=== PATIENT | female | born 1985 | race Caucasian/White ===

== ENCOUNTER 2022-03-07 16:35 | Emergency (ER) | payer OTHER, SELFPAY ==
--- NOTE | 2022-03-07 16:41 | ED.URI ---
HPI - URI/Sore Throat General Stated Complaint: cough Time Seen by Provider: 03/07/22 17:25 Source: patient and RN notes reviewed Mode of arrival: ambulatory Limitations: no limitations History of Present Illness HPI Narrative: 36-year-old female who is 8 half weeks presents with concern for cough that started Saturday. She reports she has been taking Robitussin. She denies nasal congestion, rhinorrhea, fever, body aches, chills, sweats. Reports mild sore throat. MD elicited complaint: cough Related Data Home Medications Medication Instructions Recorded Confirmed 03/07/22 escitalopram oxalate 10 mg tablet mg 03/07/22 Allergies Allergy/AdvReac Type Severity Reaction Status Date / Time No Known Allergies Allergy Verified 08/23/16 15:37 Review of Systems Review of Systems: CONSTITUTIONAL: Denies malaise, chills, sweats, or fever. EYES: Denies visual changes, redness, or discharge. ENT: Reports rhinorrhea, congestion, sinus pain, otalgia. Reports sore throat. CARDIOVASCULAR: Denies chest pain, palpitations, or edema. RESPIRATORY: Reports cough. Denies dyspnea. GASTROINTESTINAL: Denies abdominal pain, nausea, vomiting, diarrhea SKIN: Denies rash or itching. MUSCULOSKELETAL: Denies myalgia. NEUROLOGIC: Denies headache. All systems reviewed & are unremarkable except as noted in HPI and below PMFSH Comments At time of signature, agree with nursing past medical, surgical, social and family history. There is no relevant family history pertinent to the presenting complaint Exam Narrative: GENERAL: Well-appearing, well-nourished, and in no acute distress. HEAD: Normocephalic EYES: PERRLA, conjunctivae clear ENT: Nares clear. Mucous membranes moist. TM pearly ornelas with sharp light reflex bilaterally; no tragal tenderness. Oropharynx mildly erythematous without lesions. Tonsils not enlarged and without exudate, no drooling, no hoarseness, no trismus, uvula midline. NECK: Supple. No lymphadenopathy CHEST: Clear to auscultation, breath sounds equal. No wheezing, rhonchi, rales, or stridor. No respiratory distress, speaks in full sentences. HEART: Regular rate and rhythm. No murmur heard. SKIN: Warm, dry, no rash. NEURO: Alert and oriented x3. PSYCH: Normal mood and affect Course Course Emergency Course: Patient is aware of diagnosis, understands and agrees to treatment plan. Anticipatory guidance given. Patient agrees to follow-up as directed and is aware of reasons to seek care at the emergency department. Portions of this record may have been created with voice recognition software Level of Care: Express Care Visit Vital Signs Vital signs: Reviewed. MDM - URI/Sore Throat MDM Narrative Medical decision making narrative: Differential diagnosis considered: [place] virus, strep pharyngitis, allergic rhinitis, upper respiratory tract infection, sinusitis, rhinosinusitis, nasopharyngitis. viral pharyngitis, otitis media, otitis externa, pneumonia, bronchitis, viral cough syndrome, viral syndrome, and influenza. Exam findings show no acute concerns or changes; patient is non-toxic appearing and is in no distress. Patient is appropriate for outpatient treatment and follow-up. Lab Data Attestation: I reviewed the patient's lab results. Critical Care Time Critical Care Time Critical Care Time: No Discharge Plan Discharge Clinical Impression: Cough Patient Disposition: Home, Self-Care Condition: Stable Instructions: Antibiotic Form, Acute Cough (ED) Additional Instructions: Your rapid strep swab was negative today at [facility]. A throat culture will be sent to the laboratory for further testing. If the test is positive, you will receive a phone call within 48 hours and an appropriate antibiotic will be initiated at that time. Your symptoms are likely due to a viral illness, which is not treated with antibiotics. Viral symptoms can be present for up to a few weeks. -Tylenol per pack
[2022-03-07 16:54] VITALS: BP 130/85; PULSE 72; RESP 16; TEMP 37.3; O2SAT 100
== END 2022-03-07 17:50 | disposition home or self-care (01) ==
PROVIDERS: Emergency Provider Nurse Practitioner; PCP Physician Assistant
DX: O99.891 Other specified diseases and conditions complicating pregnancy (principal); Z3A.08 8 weeks gestation of pregnancy; R05.9 Cough, unspecified
CPT/HCPCS: 87081; 87880; 99213; G0463

== ENCOUNTER 2022-04-03 15:45 | Outpatient (RCR) | payer OTHER, SELFPAY ==
[2022-04-03 15:34] VITALS: BMI 27.3
== END 2022-06-19 08:54 | disposition home or self-care (01) ==
LOC: ANHDMC 15:45
PROVIDERS: PCP Physician Assistant; Visit Provider Obstetrics & Gynecology
DX: O24.319 Unspecified pre-existing diabetes mellitus in pregnancy, unspecified trimester (principal); Z3A.00 Weeks of gestation of pregnancy not specified; Z71.3 Dietary counseling and surveillance; Z71.89 Other specified counseling
CPT/HCPCS: 97802; G0108

== ENCOUNTER 2022-08-03 22:04 | Observation (INO) | payer OTHER, SELFPAY ==
--- NOTE | 2022-08-03 22:04 | OBADM ---
This patient, Karena Montiel, admitted to the OB room OB Post 116 for observation. Patient/family oriented to hospital policies and general routines including ID bracelet, bed and alarms, visiting hours, pain management, procedures, bathroom and other care routines, personal items, smoking policy, room service/diet, and visiting hours. Patient/Family are encouraged to report perceived risks to care and to ask questions if they do not understand what they are told or what they should do.
[2022-08-03 22:21] VITALS: BP 125/79; PULSE 77
[2022-08-03 22:31] VITALS: BP 121/70; PULSE 78
[2022-08-03 22:32] VITALS: BP 121/70; PULSE 78
[2022-08-03 22:38] LABS: Appearance Urine Clear (Clear); Bacteria Urine None Seen /hpf; Bilirubin Urine Negative (Negative); Blood Urine Negative (Negative); Color Urine Yellow (Yellow); Glucose Urine UA Negative (Negative); Ketones Urine 1+ mg/dL (Negative); Leukocyte Esterase Ur Trace LEU/UL (Negative); Nitrate Urine Negative (Negative); Non Pathogenic Casts 0-2; Protein Urine Negative (Negative); RBC Urine 0-2 /hpf (0-2); Specific Grav Ur 1.006 (1.001-1.035); Squamous Epithelial Cell Urine Occasional /hpf (Few); Urobilinogen Urine 0.2 mg/dL (<2.0); WBC Urine 0-5 /hpf
[2022-08-03 22:45] LABS: Add Urine Microscopic? YES
[2022-08-03 22:46] VITALS: BP 108/61; PULSE 74
--- NOTE | 2022-08-03 22:52 | PC.NURSE ---
Plan of care discussed with patient, patient agrees to plan of care. Patient educated on FFN and procardia. Patient states understanding of education. Patient denies any questions.
[2022-08-03 23:00] VITALS: BP 119/80; PULSE 88
[2022-08-03] MEDS: NIFEdipine 10 MG CAPSULE PO (23:06)
[2022-08-03 23:52] LABS: Fetal Fibronectin Negative
--- NOTE | 2022-08-04 00:33 | PC.NURSE ---
Notified Dr. Valentin of N results. Also updated on contraction pattern following procardia. Patient states she is comfortable and no longer feeling contractions. FHT appropriate for gestational age. Discharge orders received.
--- NOTE | 2022-08-04 00:47 | PC.NURSE ---
Discharge instructions reviewed with patient. Patient educated on labor precautions and provided with a handout. Patient states understanding of education. Patient questions answered. Patient states understanding of discharge instructions and denies any further questions. Patient left ambulating at 0047.
--- NOTE | 2022-08-07 02:30 | PM.OBTRLD ---
OB - Triage/Final Diagnosis Visit Information Comments/Additional reasons for admission: I have assessed the risk for this patient, Karena Montiel, and determined that she would benefit from observation care. Evaluation Laboratory results: Laboratory Tests 08/03/22 08/03/22 22:22 23:14 Urine Color Yellow Urine Appearance Clear Urine pH 7.0 Ur Specific [place] 1.006 Urine Protein Negative Urine Glucose (UA) Negative Urine Ketones 1+ H Ur Blood (Man) Negative Urine Nitrate Negative Urine Bilirubin Negative Urine Urobilinogen 0.2 Leukocyte Esterase Rfl Trace H Urine RBC 0-2 Urine WBC 0-5 Ur Squamous Epith Cells Occasional Urine Bacteria None seen Urine Casts 0-2 Fibronectin Negative Final Diagnosis (1) False labor: Code(s): O47.9 - False labor, unspecified Status: Acute
== END 2022-08-04 00:47 | disposition home or self-care (01) ==
PROVIDERS: Admitting Provider Obstetrics & Gynecology; PCP Physician Assistant; Visit Provider Obstetrics & Gynecology
DX: O47.03 False labor before 37 completed weeks of gestation, third trimester (principal); Z3A.29 29 weeks gestation of pregnancy
CPT/HCPCS: 81001; 82731; A9270; G0378; G0379

== ENCOUNTER 2022-08-29 20:34 | Observation (INO) | payer OTHER, SELFPAY ==
--- NOTE | ~2022-08-29 | US_ITS ---
EXAMINATION: US OB limited w BPP DATE: 08/29/2022 22:41 INDICATION: Spotting during third trimester TECHNIQUE: Real-time pelvic ultrasound was performed. The interpreting radiologist was not present fo r the study. COMPARISON: None. FINDINGS: There is a single living fetus in vertex presentation. The placenta is anterior. heart rate is 123 beats per minute (bpm). Cervical length measures approximately 3.6 cm which is within normal mclaughlin its. Amniotic fluid index of 9.0 cm which is normal (5th%-95%: 8.3-84.5 cm at 33 weeks estimated gest ational age) Biophysical profile performed by the technologist: breathing (30 sec sustained breathing in 30 minutes): 2 out of 2 movement (3 gross body movements in 30 minutes): 2 out of 2 tone (one episode of shtgnej-jfeelthtw-mmlxjrk limb movement): 2 out of 2 Amniotic fluid pocket (2 cm): 2 out of 2 Total score: 8 out of 8 IMPRESSION: 1. Single living fetus in vertex presentation with heart rate of 123 bpm. 2. Biophysical profile 8 out of 8. 3. Normal amniotic fluid index of 9.0 cm. Reviewed, dictated and finalized at location A.
[2022-08-29 20:51] VITALS: BP 136/77; PULSE 78; TEMP 36.6
[2022-08-29 20:57] VITALS: BMI 29.4
[2022-08-29 21:16] VITALS: BP 110/68; PULSE 78
--- NOTE | 2022-08-29 21:40 | PC.NURSE ---
Dr. Jayleen Shafer notified of PT and 33.2 weeks arriving to unit with c/o pen dot size spotting, PT states no blood noted when wiping, none noted when PT used restroom on unit. PT denies recent sexual intercourse. RN also reported vitals, reactive tracing, contractions q3-5mins. Orders to give 10mg Procardia q4-6 PRN, perform speculum exam, and ultrasound.
[2022-08-29 22:31] LABS: Appearance Urine Clear (Clear); Bacteria Urine None Seen /hpf; Bilirubin Urine Negative (Negative); Blood Urine Negative (Negative); Color Urine Yellow (Yellow); Glucose Urine UA Negative (Negative); Ketones Urine Negative (Negative); Leukocyte Esterase Ur Trace LEU/UL (Negative); Nitrate Urine Negative (Negative); Non Pathogenic Casts 0-2; Protein Urine Negative (Negative); RBC Urine 0-2 /hpf (0-2); Specific Grav Ur 1.008 (1.001-1.035); Squamous Epithelial Cell Urine Few /hpf (Few); WBC Urine 0-5 /hpf; pH Urine 7.5 (5.0-9.0)
[2022-08-29 22:40] LABS: Add Urine Microscopic? YES
[2022-08-29] MEDS: NIFEdipine 10 MG CAPSULE PO (22:40)
--- NOTE | 2022-08-29 23:03 | PC.NURSE ---
Speculum exam performed, creamy white discharge noted, no active bleeding noted, cervix closed at this time.
--- NOTE | 2022-08-29 23:30 | PC.NURSE ---
Dr. Jayleen Shafer notified of PT reactive tracing, labs, ultrasound results, rare contractions, PT states she does not feel contractions, speculum performed, white creamy discharge noted, no active bleeding, cervix closed at this time. PT denies itching or odor from vaginal area. Discharge orders received with follow up with Dr. Valentin Saturday.
--- NOTE | 2022-09-01 08:59 | PM.OBTRLD ---
OB - Triage/Final Diagnosis Visit Information Comments/Additional reasons for admission: I have assessed the risk for this patient, Karena Montiel, and determined that she would benefit from observation care. Evaluation Laboratory results: Laboratory Tests 08/29/22 22:16 Urine Color Yellow Urine Appearance Clear Urine pH 7.5 Ur Specific [place] 1.008 Urine Protein Negative Urine Glucose (UA) Negative Urine Ketones Negative Ur Blood (Man) Negative Urine Nitrate Negative Urine Bilirubin Negative Urine Urobilinogen 1.0 Leukocyte Esterase Rfl Trace H Urine RBC 0-2 Urine WBC 0-5 Ur Squamous Epith Cells Few Urine Bacteria None seen Urine Casts 0-2 Final Diagnosis (1) Spotting affecting : Code(s): O26.859 - Spotting complicating , unspecified trimester Status: Acute
== END 2022-08-29 23:53 | disposition home or self-care (01) ==
PROVIDERS: Admitting Provider Obstetrics & Gynecology; PCP Physician Assistant; Visit Provider Obstetrics & Gynecology
DX: O26.853 Spotting complicating pregnancy, third trimester (principal); O24.419 Gestational diabetes mellitus in pregnancy, unspecified control; Z3A.33 33 weeks gestation of pregnancy
CPT/HCPCS: 76815; 76819; 81001; 87086; A9270; G0378; G0379

== ENCOUNTER 2022-08-31 13:47 | Outpatient (RCR) | payer OTHER, SELFPAY ==
[2022-08-23 16:00] VITALS: BP 111/70; PULSE 75
--- NOTE | 2022-08-31 14:55 | PC.NURSE ---
Dr. Valentin aware of pt having contractions. Pt rates them as period cramps. Order received to discharge pt.
[2022-08-31 14:59] VITALS: BP 110/62; PULSE 77
== END 2022-11-21 23:59 | disposition home or self-care (01) ==
LOC: ANHOBOP 13:47
PROVIDERS: PCP Physician Assistant; Visit Provider Obstetrics & Gynecology
DX: O24.419 Gestational diabetes mellitus in pregnancy, unspecified control (principal); Z3A.32 32 weeks gestation of pregnancy
CPT/HCPCS: 59025

== ENCOUNTER 2022-09-05 14:48 | Observation (INO) | payer OTHER, SELFPAY ==
[2022-09-05] VITALS (11 sets, daily range): BP systolic 108–123; BP diastolic 58–73; PULSE 71–87; BMI 29.0
[2022-09-05] MEDS: NIFEdipine 10 MG CAPSULE PO ×2 (15:42→16:51)
[2022-09-05 15:48] LABS: Appearance Urine Clear (Clear); Bacteria Urine None Seen /hpf; Bilirubin Urine Negative (Negative); Blood Urine Negative (Negative); Color Urine Yellow (Yellow); Glucose Urine UA Negative (Negative); Ketones Urine Negative (Negative); Leukocyte Esterase Ur Trace LEU/UL (Negative); Nitrate Urine Negative (Negative); Non Pathogenic Casts 0-2; Protein Urine Negative (Negative); RBC Urine 0-2 /hpf (0-2); Specific Grav Ur 1.009 (1.001-1.035); Squamous Epithelial Cell Urine None seen /hpf (Few); WBC Urine 0-5 /hpf
[2022-09-05 15:50] LABS: Add Urine Microscopic? YES
--- NOTE | 2022-10-11 02:13 | PM.OBTRLD ---
OB - Triage/Final Diagnosis Visit Information Comments/Additional reasons for admission: I have assessed the risk for this patient, Karena Montiel, and determined that she would benefit from observation care. Evaluation Laboratory results: Laboratory Tests 09/05/22 15:36 Urine Color Yellow Urine Appearance Clear Urine pH 8.0 Ur Specific [place] 1.009 Urine Protein Negative Urine Glucose (UA) Negative Urine Ketones Negative Ur Blood (Man) Negative Urine Nitrate Negative Urine Bilirubin Negative Urine Urobilinogen 1.0 Leukocyte Esterase Rfl Trace H Urine RBC 0-2 Urine WBC 0-5 Ur Squamous Epith Cells None seen Urine Bacteria None seen Urine Casts 0-2 Final Diagnosis (1) False labor: Code(s): O47.9 - False labor, unspecified Status: Acute
== END 2022-09-05 18:06 | disposition home or self-care (01) ==
PROVIDERS: Admitting Provider Obstetrics & Gynecology; PCP Physician Assistant; Visit Provider Obstetrics & Gynecology
DX: O47.03 False labor before 37 completed weeks of gestation, third trimester (principal); Z3A.34 34 weeks gestation of pregnancy
CPT/HCPCS: 81001; A9270; G0378; G0379

== ENCOUNTER 2022-09-25 20:09 | Observation (INO) | payer OTHER, SELFPAY ==
--- NOTE | 2022-09-25 22:34 | OBADM ---
This patient, Karena Montiel, admitted to the OB room Labor/Delivery/Recovery 105 for observation. Patient/family oriented to hospital policies and general routines including ID bracelet, bed and alarms, visiting hours, pain management, procedures, bathroom and other care routines, personal items, smoking policy, room service/diet, and visiting hours. Patient/Family are encouraged to report perceived risks to care and to ask questions if they do not understand what they are told or what they should do.
--- NOTE | 2022-09-27 12:18 | PM.OBTRLD ---
OB - Triage/Final Diagnosis Visit Information Reason for evaluation: threatened labor Comments/Additional reasons for admission: I have assessed the risk for this patient, Karena Montiel, and determined that she would benefit from observation care.
== END 2022-09-25 22:38 | disposition home or self-care (01) ==
PROVIDERS: Admitting Provider Obstetrics & Gynecology; PCP Physician Assistant; Visit Provider Obstetrics & Gynecology
DX: O47.1 False labor at or after 37 completed weeks of gestation (principal); Z3A.37 37 weeks gestation of pregnancy
CPT/HCPCS: G0378; G0379

== ENCOUNTER 2022-10-08 06:06 | Inpatient (IN) | payer OTHER, SELFPAY ==
[2022-10-08] VITALS (154 sets, daily range): BP systolic 99–180; BP diastolic 46–136; PULSE 34–105; RESP 16–18; TEMP 36.6–37; O2SAT 84–100; BMI 29.7
[2022-10-08 06:45] LABS: Basophils Percent Auto 0.2 % (0.2-1.2); Eosinophils Absolute Auto 0.1 K/mm3 (0-0.3); Eosinophils Percent Auto 0.5 % (0-4.4); Hematocrit 32.9 % (37.0-47.0); Hemoglobin 10.7 g/dL (12.0-15.0); Immature Granulocyte Absolute 0.05 K/mm3 (0.00-0.031); Immature Granulocyte Percent A 0.5 % (0-0.5); Lymphocytes Absolute Auto 1.47 K/mm3 (0.9-3.2); Lymphocytes Percent Auto 13.3 % (18.3-44.2); Mean Corpuscular HGB Conc 32.5 g/dl (32-36); Mean Corpuscular Hemoglobin 28.1 pg (26-34); Mean Corpuscular Volume 86.4 fl (80-100); Mean Platelet Volume 10.2 fl (7.4-10.4); Monocytes Absolute Auto 0.4 K/mm3 (0.1-0.6); Monocytes Percent Auto 3.7 % (2.6-8.5); Neutrophils Absolute Auto 9.1 K/mm3 (1.3-6.7); Neutrophils Percent Auto 81.8 % (45.5-73.1); Platelet Count Result 224 k/mm3 (150-375); Red Blood Count 3.81 M/mm3 (4.2-5.4); Red Cell Distribution Width 14.5 % (11.5-14.5); White Blood Count 11.1 K/mm3 (4.5-10.0)
[2022-10-08] MEDS: OXYTOCIN 30 UNITS/NS 500 ML 30 UNITS/500 ML BAG IV CONT (06:54)
[2022-10-08] MEDS: LACTATED RINGERS 1,000 ML 125 ML IV CONT ×2 (06:54→08:14)
--- NOTE | 2022-10-08 07:31 | LDADM ---
This patient, Karena Montiel, was admitted to Labor/Delivery/Recovery 105 on 10/08/22 at 06:06. Plans for labor, pain management and were discussed with patient. Patient/family oriented to hospital policies and general routines including ID bracelet, bed and alarms, visiting hours, pain management, procedures, bathroom and other care routines, personal items, smoking policy, room service/diet and guest tray routines, security routines, and visiting hours. Patient/Family are encouraged to report perceived risks to care and to ask questions if they do not understand what they are told or what they should do. See OBIX for further documentation.
[2022-10-08 08:05] LABS: Rapid Plasma Reagin Non-Reactive (NonReactive)
--- NOTE | 2022-10-08 08:27 | WPDANESEPPF ---
Anes - Initial Pre Proc Eval Procedure: labor epidural Date/Time: 10/08/22 08:27 Surgeon: Jarad Valentin MD Pre Op Diagnosis: labor pain Pre Op Diagnosis: Induction of Labor Patient Data Age: 37 Gender: F Height: 1.78 m Weight: 94 kg Last Vital Signs Pulse 73 10/08/22 08:24 BP 128/76 10/08/22 08:24 Pulse Ox 99 10/08/22 08:23 O2 Del Method Room Air 10/08/22 07:29 Allergies Allergy/AdvReac Type Severity Reaction Status Date / Time No Known Allergies Allergy Verified 10/08/22 07:36 Home Medications Medication Instructions Recorded Confirmed Type escitalopram oxalate 10 mg tablet 10 mg PO DAILY 03/07/22 10/08/22 History aspirin 81 mg tablet,delayed 81 mg PO DAILY 08/03/22 10/08/22 History release insulin detemir U-100 100 unit/mL 20 unit subcut BID 08/03/22 10/08/22 History (3 mL) subcutaneous pen (Levemir FlexPen) insulin lispro-aabc 100 unit/mL See Rx Instructions .Route .COMPLEX 08/03/22 10/08/22 History subcutaneous pen (Lyumjev KwikPen U-100 Insulin) levothyroxine 75 mcg tablet 75 mcg PO DAILY 08/03/22 10/08/22 History liothyronine 5 mcg tablet 5 mcg PO DAILY 08/03/22 10/08/22 History Laboratory Tests 10/08/22 06:26 WBC 11.1 H K/mm3 (4.5-10.0) RBC 3.81 L M/mm3 (4.2-5.4) Hgb 10.7 L g/dL (12.0-15.0) Hct 32.9 L % (37.0-47.0) MCV 86.4 fl (80-100) MCH 28.1 pg (26-34) MCHC 32.5 g/dl (32-36) RDW 14.5 % (11.5-14.5) Plt Count 224 k/mm3 (150-375) MPV 10.2 fl (7.4-10.4) Immature Gran % (Auto) 0.5 % (0-0.5) Neut % (Auto) 81.8 H % (45.5-73.1) Lymph % (Auto) 13.3 L % (18.3-44.2) [place] % (Auto) 3.7 % (2.6-8.5) Eos % (Auto) 0.5 % (0-4.4) Baso % (Auto) 0.2 % (0.2-1.2) Lymph # (Auto) 1.47 K/mm3 (0.9-3.2) [place] # (Auto) 0.4 K/mm3 (0.1-0.6) Eos # (Auto) 0.1 K/mm3 (0-0.3) Baso # (Auto) 0.0 K/mm3 (0.0-0.1) Abs Immat Gran (auto) 0.05 H K/mm3 (0.00-0.031) Absolute Neuts (auto) 9.1 H K/mm3 (1.3-6.7) Absolute Nucleated RBC 0.0 K/mm3 (0.0-0.012) Nucleated RBC % 0.0 % (0.0-0.2) Sodium Pending Potassium Pending Chloride Pending Carbon Dioxide Pending Anion Gap Pending BUN Pending Creatinine Pending Estim Creat Clear Calc Pending Estimated GFR Pending Glucose Pending Calcium Pending RPR Non-reactive (NonReactive) Blood Type A Positive Antibody Screen Negative Patient hx anesthesia problems: none Family hx anesthesia problems: none Results Review: All pre-operative results and documents have been reviewed as part of the pre-operative evaluation. [facility] Past Medical History Medical History (Updated 10/08/22 @ 08:28 by Pablo Kumar DO) Gestational diabetes Family History Family History (Updated 09/22/22 @ 18:11 by Troy Villagomez RN) Father Hypertension Mother Hypertension Social History Social History Smoking status: Never smoker Substance use: never Lack of Transportation: No Lack of Food: Never True Current Housing: I Have Housing Concerned About Future Housing: No Difficulty Paying Gas/Electric Bills: No Difficulty Paying for Meds: No Currently Unemployed: No Education: Bachelor's Degree Difficulty w/ Childcare or Family Care: No Spiritual care concerns: No Anes - Eval Final PreProcedure Day of Procedure 10/08/22 08:27 Patient weight: overweight ASA classification: III Anesthetic plan: proceed Anesthesia type and monitoring: regional epidural and standard monitoring Results Review: All pre-operative results and documents have been reviewed as part of the pre-operative evaluation. Informed Consent: The patient's anesthetic plan and its attendant risks and benefits were discussed with the patient/family/POA. Questions were solicited and answers provided to the satisfaction of th
--- NOTE | 2022-10-08 08:48 | P.HP_ITS ---
Obstetrics - Admit Note Admission Note: record reviewed. Additions to the history and/or subsequent changes in the physical findings follow. 37 y/o at 39 1/7 weeks here for induction of labor. Her Type 2 DM has been managed by [facility] with insulin. She has had excellent glycemic control. GBS neg. Hypothyroidism, well-controlled. Anxiety, well-controlled on Lexapro 10 mg. AVSS NST reactive TOCO: contractions every 2-4 min ABD soft, nontender, gravid, vertex EXT nontender Cervix 4/50/-2. AROM with clear fluid. Fasting glc 72. A: IUP at term with favorable cervix, Type 2 DM. P: Have offered induction of labor. Reviewed risks, benefits, alternatives, and she elects to proceed. Continue oxytocin. Monitor accuchecks. Anticipate .
[2022-10-08 09:09] LABS: Glucose Point of Care 68 mg/dl (65-105)
[2022-10-08 10:59] LABS: Glucose Point of Care 58 mg/dl (65-105)
--- NOTE | 2022-10-08 11:20 | PC.NURSE ---
1020- Introductions were made and mother shared how she would like to feed her baby with along with her past experience. Mother states the other two infants experienced separation after . Encouraged mother to place [id number] until the first feeding if is stable and to wait on the weight to help stabilize, reduce infant stress, and improve latching by allowing infant time to explore parent's chest using instincts. Education was shared on how to protect her milk supply with latching infant and/or using hand expression to remove milk if doesn't latch in the first hour, then finger feed colostrum to the infant to preserve breast focus. Demonstration given on how to hand express using tool. Resources provided with educational trifold for bonding and feeding infant. Parents voiced understanding of information and to call if there is a request for assistance.
--- NOTE | 2022-10-08 11:51 | PM.OBPNLAB ---
Pain Control Date/time seen: 10/08/22 11:51 Comments: Comfortable with epidural Pelvic Exam Dilation (cm): 6 Effacement (%): 50 station: -2 Comments: IUPC placed Contractions Contraction frequency: 3 Status status: Category l Assessment and Plan Comments: Continue labor. Continue to monitor accuchecks.
[2022-10-08 14:05] LABS: Glucose Point of Care 65 mg/dl (65-105)
--- NOTE | 2022-10-08 14:26 | P.PCNOB_ITS ---
OB - Delivery Note Procedure Delivery date: 10/08/22 Procedure: Induction of labor with Events: Diabetes Mellitus Induction method: Per Pitocin Protocol Delivery augmentation: Rupture of Membranes Delivery monitor: External FHT, External Uterine and Internal Uterine Route of delivery: Laceration Description: Perineal - 2nd Degree Delivery repair: vicryl (3-0) Specimen: Yes (Cord blood, placenta) Quantitative Blood Loss (ml): 220 Anesthesia type: Epidural Disposition: PACU Complications: None Narrative: 37 y/o at 39 1/7 weeks gestation who presented to the hospital for induction of labor. Oxytocin was administered intravenously. Amniotomy was performed with return of clear fluid. She received an epidural for pain control. Accuchecks remained normal throughout labor. Her labor progressed and her cervix dilated completely. She pushed with good effort and delivered the infant's head to the perineum, followed by the body. The nose and mouth were bulb suctioned. After a delay, the cord was clamped and cut. The infant was handed off the field. Cord blood was collected. The placenta delivered spontaneously and was grossly normal in appearance. The usual 3 vessel cord was noted, as was a true knot. A second degree midline perineal laceration was sustained. This was reapproximated using 3 0 Vicryl in the usual layered fashion. Excellent hemostasis resulted as did excellent reapproximation of the normal anatomy. Needle and instrument counts were correct. The patient was taken to recovery room in stable condition. The infant went to the nursery in stable condition. I was present and scrubbed for the entire delivery. [place] Baby Date of : 10/08/22 Time of : 14:07 Weeks of gestation at delivery: 39 gender: Female Weight (pounds): 7 Weight (ounces): 11 presentation: vertex position: Left Occiput Anterior Placenta delivery description: Spontaneous and Normal Configuration Cord Vessel Description: 3 Vessels, True Knot and Delayed Cord Clamping score one minute: 9 score five minutes: 9
--- NOTE | 2022-10-08 14:26 | PM.OBDSVD ---
DS: Admitting Diagnosis Discharge Date 10/09/22 Admitting Diagnosis IUP at 39 1/7 weeks Type 2 DM OB - DS: Summary OB Procedures : None OB Procedures Intrapartum: Spontaneous Vag Delivery OB Procedures: : None Time Spent with Patient Time attestation: Total time spent providing and/or coordinating discharge services: DS: Data Data Completed and Pending Labs on day of discharge: Labs from last 24 hours 10/08/22 10/08/22 10/08/22 14:03 10:53 09:05 WBC RBC Hgb Hct MCV MCH MCHC RDW Plt Count MPV Immature Gran % (Auto) Neut % (Auto) Lymph % (Auto) [place] % (Auto) Eos % (Auto) Baso % (Auto) Lymph # (Auto) [place] # (Auto) Eos # (Auto) Baso # (Auto) Abs Immat Gran (auto) Absolute Neuts (auto) Absolute Nucleated RBC Nucleated RBC % Sodium Potassium Chloride Carbon Dioxide Anion Gap BUN Creatinine Estim Creat Clear Calc Estimated GFR Glucose POC Capillary Glucose 65 58 L* 68 Calcium RPR Blood Type Antibody Screen 10/08/22 06:26 WBC 11.1 H RBC 3.81 L Hgb 10.7 L Hct 32.9 L MCV 86.4 MCH 28.1 MCHC 32.5 RDW 14.5 Plt Count 224 MPV 10.2 Immature Gran % (Auto) 0.5 Neut % (Auto) 81.8 H Lymph % (Auto) 13.3 L [place] % (Auto) 3.7 Eos % (Auto) 0.5 Baso % (Auto) 0.2 Lymph # (Auto) 1.47 [place] # (Auto) 0.4 Eos # (Auto) 0.1 Baso # (Auto) 0.0 Abs Immat Gran (auto) 0.05 H Absolute Neuts (auto) 9.1 H Absolute Nucleated RBC 0.0 Nucleated RBC % 0.0 Sodium Pending Potassium Pending Chloride Pending Carbon Dioxide Pending Anion Gap Pending BUN Pending Creatinine Pending Estim Creat Clear Calc Pending Estimated GFR Pending Glucose Pending POC Capillary Glucose Calcium Pending RPR Non-reactive Blood Type A Positive Antibody Screen Negative Discharge Plan Discharge Attending physician on discharge: Jarad Valentin Discharging Clinician: Jarad Valentin Patient Disposition: Home, Self-Care Activity: pelvic rest Diet: regular Discharge Instructions: Call or return if temperature above 100.4? F, increased abdominal pain, increased vaginal bleeding or any new problems. Stand Alone Forms: General Discharge Information Follow-up/Referrals: Jarad Valentin MD [Physician] - 6 Weeks Discharge Medications: New ibuprofen 600 mg tablet 600 mg PO Q6H PRN (Reason: cramps) Qty: 30 0RF Continued escitalopram oxalate 10 mg tablet 10 mg PO DAILY liothyronine 5 mcg tablet 5 mcg PO DAILY levothyroxine 75 mcg tablet 75 mcg PO DAILY Discontinued aspirin 81 mg tablet,delayed release (DR/EC) 81 mg PO DAILY Levemir FlexPen 100 unit/mL (3 mL) insulin pen 20 unit SUBCUT BID Patient Comments: 14 units of levimir in the am, 20 units in the pm Lyumjev KwikPen U-100 Insulin 100 unit/mL insulin pen See Rx Instructions .ROUTE .COMPLEX Rx Instructions: sliding scale Date of admission: 10/08/22 06:06 Primary Care Provider: Belen,Jaida Admitting Provider: Jarad Valentin Attending physician on admission: Jarad Valentin Condition: Stable
[2022-10-08] MEDS: OXYTOCIN 30 UNITS/NS 500 ML 30 UNITS/500 ML BAG 125 UNITS IV CONT (14:37)
[2022-10-08] MEDS: WITCH HAZEL 40 PADS 1 PAD TOPICAL (16:55)
[2022-10-08] MEDS: BENZOCAINE 20% AER SPR (*SP) 56 GM CAN 1 SPRAY TOPICAL (16:56)
--- NOTE | 2022-10-08 19:14 | OBPPTRN ---
1716-Patient transferred to post room #284 via wheelchair. Support person present. Oriented to unit, room, information board, rooming in, admission packet and security measures. Patient verbalizes understanding.
[2022-10-08] MEDS: IBUPROFEN 600 MG TABLET PO (21:00)
[2022-10-08] MEDS: ACETAMINOPHEN 325 MG TABLET 650 MG PO (21:02)
[2022-10-09 04:10] VITALS: BP 124/87; PULSE 70; RESP 18; TEMP 36.9
[2022-10-09 05:01] LABS: Hematocrit 31.6 % (37.0-47.0); Hemoglobin 10.1 g/dL (12.0-15.0)
[2022-10-09] MEDS: LEVOTHYROXINE SODIUM 75 MCG TABLET PO (07:13)
[2022-10-09 07:35] VITALS: BP 109/74; PULSE 70; RESP 16; TEMP 36.8; O2SAT 100
--- NOTE | 2022-10-09 08:13 | PM.OBPNVD ---
OB - PN: Subj Subjective Date/time seen: 10/09/22 08:13 Narrative: Pain OK. Would like to go home. OB - PN: Obj Data Labs 10/09/22 04:12 10/08/22 06:26 Labs: Laboratory Results - last 24 hr 10/08/22 10/08/22 10/08/22 06:26 09:05 10:53 Hgb Hct Sodium Cancelled Potassium Cancelled Chloride Cancelled Carbon Dioxide Cancelled Anion Gap Cancelled BUN Cancelled Creatinine Cancelled Estim Creat Clear Calc Cancelled Estimated GFR Cancelled Glucose Cancelled POC Capillary Glucose 68 58 L* Calcium Cancelled 10/08/22 10/09/22 14:03 04:12 Hgb 10.1 L Hct 31.6 L Sodium Potassium Chloride Carbon Dioxide Anion Gap BUN Creatinine Estim Creat Clear Calc Estimated GFR Glucose POC Capillary Glucose 65 Calcium OB - PN A/P Assessment and Plan (1) (normal spontaneous vaginal delivery): Code(s): O80 - Encounter for full-term uncomplicated delivery Status: Acute (2) Diabetes in : Qualifiers: Diabetes in type: pre-existing, type 2 Trimester: third trimester Qualified Code(s): O24.113 - Pre-existing type 2 diabetes mellitus, in , third trimester Code(s): O24.919 - Unspecified diabetes mellitus in , unspecified trimester Status: Acute Plan day: 1 Comments: A: PPD#1, doing well. Accuchecks OK. Would like to go home. P: Home to f/u 6 weeks. Exam Psych: Other: AVSS ABD soft, nontender, fundus firm EXT nontender Accuchecks OK
[2022-10-09] MEDS: LIOTHYRONINE SODIUM 5 MCG TABLET PO (08:32)
[2022-10-09] MEDS: MULTIVIT/MIN/PREN/FOL AC/IRON TABLET 1 TAB PO (08:32)
[2022-10-09] MEDS: ESCITALOPRAM OXALATE 10 MG TABLET PO (08:32)
--- NOTE | 2022-10-09 08:58 | WPDANLDPN2 ---
Anes-Prog Note L&D Date/Time: 10/09/22 08:58 Comfortable throughout: labor and delivery Neuraxial method: epidural Epidural/Spinal procedure site: clean & non-tender Neuro status: Neuro function grossly intact. Cardiovascular status: normal Respiratory status: normal Airway patency: baseline Mental status: baseline Post-Op hydration status: normal Vital Signs: Last Vital Signs Temp 98.3 F 10/09/22 07:35 Pulse 70 10/09/22 07:35 Resp 16 10/09/22 07:35 BP 109/74 10/09/22 07:35 Pulse Ox 100 10/09/22 07:35 O2 Del Method Room Air 10/09/22 05:07 Pain score (VAS): 0 I/O: Intake & Output 10/08/22 10/09/22 10/09/22 23:59 07:59 15:59 Intake Total 1220 Output Total 80 Balance 1140 Post-procedural complaints: none Patient feedback: Patient satisfied with anesthetic care.
[2022-10-09 12:20] VITALS: BP 111/72; PULSE 75; RESP 18; TEMP 36.8; O2SAT 99
--- NOTE | 2022-10-09 16:16 | PC.NURSE ---
[id number] Purposefully rounded to assess for needs. Mother verbalizes she is able to independently latch with appropriate positioning/alignment. She denies any nipple discomfort and is responsively . Infant is currently meeting outcomes for weight, output, jaundice and feeding frequencies of 8-12 times in 24 hours. Mother declines any additional assistance/education at this time. Mother is encouraged to call for assistance if her infant doesn?t latch or there is discomfort with latching. Mother voiced understanding of information shared and the mom reminded of the mom/baby guide for an additional resource. Reported to the primary RN.
[2022-10-10 10:11] VITALS: BP 110/71; PULSE 64; RESP 18; TEMP 36.9; O2SAT 99
== END 2022-10-09 16:25 | disposition home or self-care (01) | DRG 805 ==
LOC: ANHLDR 14:27 → ANHOB2 17:19
PROVIDERS: Admitting Provider Obstetrics & Gynecology; PCP Physician Assistant; Visit Provider Obstetrics & Gynecology
DX: O62.3 Precipitate labor (principal); O24.12 Pre-existing type 2 diabetes mellitus, in childbirth; Z37.0 Single live birth; O99.284 Endocrine, nutritional and metabolic diseases complicating childbirth; E03.9 Hypothyroidism, unspecified; O99.344 Other mental disorders complicating childbirth; O70.1 Second degree perineal laceration during delivery; O69.2XX0 Labor and delivery complicated by other cord entanglement, with compression, not applicable or unspecified; Z3A.39 39 weeks gestation of pregnancy; Z79.4 Long term (current) use of insulin
CPT/HCPCS: 36415; 82948; 85014; 85018; 85025; 86592; 86850; 86900; 86901; 88307; A9270; J2590; J2795; J7120